=== PATIENT | female | born 1995 | race Caucasian/White ===

== ENCOUNTER 2017-05-26 13:23 | Emergency (ER) | payer MEDICAID ==
[~2017-05-26] VITALS: Ht 154.9 cm; Wt 106.8 kg
[2017-05-26 14:57] LABS: BASOPHILS % (AUTO) 0.7 % (0.0-2.0); EOSINOPHILS % (AUTO) 0.7 % (1.0-6.0); HEMATOCRIT 34.6 % (36-46); HEMOGLOBIN 10.9 g/dL (12.0-16.0); LYMPHOCYTES # (AUTO) 1.7 K/uL (1.0-4.8); LYMPHOCYTES % (AUTO) 13.8 % (22.0-44.0); MEAN CORPUSCULAR HEMOGLOBIN 22.6 pg (26.0-34.0); MEAN CORPUSCULAR HGB CONC 31.4 G/dL (31.0-37.0); MEAN CORPUSCULAR VOLUME 72 fL (80-100); MONOCYTES # (AUTO) 0.7 K/uL (0.1-1.0); MONOCYTES % (AUTO) 5.4 % (2.0-9.0); NEUTROPHILS % (AUTO) 79.4 % (40.0-70.0); PLATELET COUNT (AUTO) 336 K/uL (150-450); RED BLOOD CELL COUNT(AUTO) 4.82 MIL/uL (4.00-5.20); RED CELL DISTRIBUTION WIDTH 18.1 % (11.5-14.5)
[2017-05-26 15:09] LABS: ANION GAP 8 mmol/L (8-16); CALCIUM, TOTAL 8.9 mg/dL (8.8-10.5); CARBON DIOXIDE 28 mmol/L (22-29); CHLORIDE 101 mmol/L (98-107); CREATININE 0.87 mg/dL (0.60-1.30); GLOMERULAR FILTR. RATE CALC > 60 mL/min (>60); GLUCOSE,RANDOM 106 mg/dL (70-110); SODIUM SERUM 137 mmol/L (136-145); UREA NITROGEN, BLOOD 16 mg/dL (7-18)
[2017-05-26 15:15] LABS: ALANINE AMINOTRANSFERASE 32 U/L (12-78); ALBUMIN 3.6 g/dL (3.4-5.0); ALKALINE PHOSPHATASE 127 U/L (46-116); ASPARTATE AMINOTRANSFERASE 25 U/L (15-37); BILIRUBIN,TOTAL 0.5 mg/dL (0.1-1.0); TOTAL PROTEIN, SERUM 7.9 g/dL (6.4-8.2)
[2017-05-26 15:26] LABS: PLATELET MORPHOLOGY COMMENT GIANT PLTS PRESENT
[2017-05-26] MEDS ORDERED: MORPHINE SULFATE 4 MG/ML SYRINGE IVP ONE (16:30)
[2017-05-26] MEDS ORDERED: ONDANSETRON HCL 4 MG/2 ML VIAL IVP ONE (16:30)
[2017-05-26] MEDS ORDERED: LORazepam 2 MG/ML VIAL IVP ONE (16:45)
[2017-05-26 19:03] VITALS: BP 158/87
== END 2017-05-26 19:22 | disposition home or self-care (01) ==
LOC: EMS 13:23
DX: R07.89 Other chest pain (principal); F41.9 Anxiety disorder, unspecified
CPT/HCPCS: 36415; 71046; 71275; 80053; 84484; 84703; 85025; 85379; 93005; 96374; 96375; 99285; J2060; J2270; J2405

== ENCOUNTER 2017-09-21 09:22 | Emergency (ER) | payer MEDICAID ==
[~2017-09-21] VITALS: Ht 157.5 cm; Wt 111.6 kg
[2017-09-21] MEDS ORDERED: ENOXAPARIN SODIUM 100 MG/ML PF SYRINGE SQ ONE (11:45)
[2017-09-21] MEDS ORDERED: WARFARIN SODIUM 5 MG TABLET PO ONE (11:45)
[2017-09-21 12:23] VITALS: BP 134/68
== END 2017-09-21 12:24 | disposition home or self-care (01) ==
LOC: EMS 09:23
DX: I82.401 Acute embolism and thrombosis of unspecified deep veins of right lower extremity (principal); I10 Essential (primary) hypertension; F17.210 Nicotine dependence, cigarettes, uncomplicated
CPT/HCPCS: 93971; 96372; 99284; J1650

== ENCOUNTER 2017-09-22 10:27 | Emergency (ER) | payer MEDICAID ==
[~2017-09-22] VITALS: Ht 152.4 cm; Wt 111.6 kg
[2017-09-22] MEDS ORDERED: WARFARIN SODIUM 7.5 MG TABLET PO ONE (12:00)
[2017-09-22] MEDS ORDERED: ENOXAPARIN SODIUM 60 MG/0.6 ML PF SYRINGE SQ ONE ×3 (12:00→12:45)
[2017-09-22] MEDS ORDERED: ENOXAPARIN SODIUM 100 MG/ML PF SYRINGE SQ ONE (13:15)
[2017-09-22] MEDS ORDERED: ENOXAPARIN SODIUM 80 MG/0.8 ML PF SYRINGE SQ ONE (13:15)
[2017-09-22 13:33] VITALS: BP 132/68
== END 2017-09-22 13:37 | disposition home or self-care (01) ==
LOC: EMS 10:28
DX: I82.4Z1 Acute embolism and thrombosis of unspecified deep veins of right distal lower extremity (principal); I10 Essential (primary) hypertension; F17.210 Nicotine dependence, cigarettes, uncomplicated
CPT/HCPCS: 96372; 99284; 99406; J1650 ×2

== ENCOUNTER 2017-09-23 18:21 | Emergency (ER) | payer MEDICAID ==
[~2017-09-23] VITALS: Ht 157.5 cm; Wt 111.4 kg
[2017-09-23 20:10] LABS: BASOPHILS % (AUTO) 0.9 % (0.0-2.0); EOSINOPHILS % (AUTO) 1.4 % (1.0-6.0); HEMATOCRIT 33.2 % (36-46); HEMOGLOBIN 10.7 g/dL (12.0-16.0); LYMPHOCYTES # (AUTO) 2.1 K/uL (1.0-4.8); LYMPHOCYTES % (AUTO) 22.8 % (22.0-44.0); MEAN CORPUSCULAR HEMOGLOBIN 23.3 pg (26.0-34.0); MEAN CORPUSCULAR HGB CONC 32.4 G/dL (31.0-37.0); MEAN CORPUSCULAR VOLUME 72 fL (80-100); MONOCYTES # (AUTO) 0.6 K/uL (0.1-1.0); MONOCYTES % (AUTO) 7.1 % (2.0-9.0); NEUTROPHILS # (AUTO) 6.2 K/uL (1.8-7.7); NEUTROPHILS % (AUTO) 67.8 % (40.0-70.0); PLATELET COUNT (AUTO) 226 K/uL (150-450); RED BLOOD CELL COUNT(AUTO) 4.62 MIL/uL (4.00-5.20); RED CELL DISTRIBUTION WIDTH 16.3 % (11.5-14.5)
[2017-09-23 20:26] LABS: INR 2.2 (0.9-1.1); PROTHROMBIN TIME 22.8 SEC (9.4-11.6)
[2017-09-23 20:37] LABS: PLATELET MORPHOLOGY COMMENT NORMAL
[2017-09-23] MEDS ORDERED: ENOXAPARIN SODIUM 60 MG/0.6 ML PF SYRINGE SQ ONE (21:45)
[2017-09-23] MEDS ORDERED: WARFARIN SODIUM 5 MG TABLET PO ONE (21:45)
[2017-09-23 22:25] VITALS: BP 138/86
== END 2017-09-23 22:28 | disposition home or self-care (01) ==
LOC: EMS 18:22
DX: I82.409 Acute embolism and thrombosis of unspecified deep veins of unspecified lower extremity (principal); I10 Essential (primary) hypertension; F17.210 Nicotine dependence, cigarettes, uncomplicated
CPT/HCPCS: 36415; 85025; 85610; 85730; 96372; 99284; J1650

== ENCOUNTER 2017-10-06 19:00 | Emergency (ER) | payer MEDICAID ==
[~2017-10-06] VITALS: Ht 157.5 cm; Wt 104.5 kg
[2017-10-06 19:33] LABS: HEMOGLOBIN 10.4 g/dL (12.0-16.0); MEAN CORPUSCULAR HEMOGLOBIN 23.1 pg (26.0-34.0); MEAN CORPUSCULAR HGB CONC 31.5 G/dL (31.0-37.0); MEAN CORPUSCULAR VOLUME 73 fL (80-100); PLATELET COUNT (AUTO) 224 K/uL (150-450); RED BLOOD CELL COUNT(AUTO) 4.52 MIL/uL (4.00-5.20); RED CELL DISTRIBUTION WIDTH 17.1 % (11.5-14.5)
[2017-10-06 19:38] LABS: ANION GAP 9 mmol/L (8-16); CALCIUM, TOTAL 8.4 mg/dL (8.8-10.5); CARBON DIOXIDE 25 mmol/L (22-29); CHLORIDE 103 mmol/L (98-107); CREATININE 1.04 mg/dL (0.60-1.30); GLOMERULAR FILTR. RATE CALC > 60 mL/min (>60); GLUCOSE,RANDOM 102 mg/dL (70-110); SODIUM SERUM 137 mmol/L (136-145); UREA NITROGEN, BLOOD 19 mg/dL (7-18)
[2017-10-06 19:43] LABS: INR 1.2 (0.9-1.1); PROTHROMBIN TIME 12.4 SEC (9.4-11.6)
[2017-10-06 19:44] LABS: ALANINE AMINOTRANSFERASE 25 U/L (12-78); ALBUMIN 3.2 g/dL (3.4-5.0); ALKALINE PHOSPHATASE 131 U/L (46-116); ASPARTATE AMINOTRANSFERASE 19 U/L (15-37); BILIRUBIN,TOTAL 0.4 mg/dL (0.1-1.0); TOTAL PROTEIN, SERUM 7.5 g/dL (6.4-8.2)
[2017-10-06 19:50] LABS: PLATELET MORPHOLOGY COMMENT GIANT PLTS PRESENT
[2017-10-06 19:51] LABS: BAND NEUTROPHILS % (MANUAL) 17 % (0-5); EOSINOPHILS % (MANUAL) 3 % (1-6); LYMPHOCYTES % (MANUAL) 15 % (22-44); MONOCYTES % (MANUAL) 7 % (2-9); SEGMENTED NEUTROPHILS % 58 % (40-70)
[2017-10-06] MEDS ORDERED: RIVAROXABAN 15 MG TABLET PO ONE (20:45)
[2017-10-06] MEDS ORDERED: ENOXAPARIN SODIUM 60 MG/0.6 ML PF SYRINGE SQ SCH (20:45)
[2017-10-06 22:02] VITALS: BP 121/71
== END 2017-10-06 22:03 | disposition home or self-care (01) ==
LOC: EMS 19:01
DX: I82.401 Acute embolism and thrombosis of unspecified deep veins of right lower extremity (principal); I10 Essential (primary) hypertension; F17.210 Nicotine dependence, cigarettes, uncomplicated
CPT/HCPCS: 36415; 80053; 85025; 85610; 85730; 93971; 96372; 99285; J1650

== ENCOUNTER 2017-11-18 07:35 | Emergency (ER) | payer MEDICAID ==
[~2017-11-18] VITALS: Ht 157.5 cm; Wt 106.8 kg
[2017-11-18] MEDS ORDERED: IBUPROFEN 800 MG TABLET PO ONE (08:00)
[2017-11-18] MEDS ORDERED: DiphenhydrAMINE HCL 25 MG CAPSULE PO ONE (08:00)
[2017-11-18] MEDS ORDERED: METOCLOPRAMIDE HCL 10 MG TABLET PO ONE (08:00)
[2017-11-18] MEDS ORDERED: METOCLOPRAMIDE HCL 5 MG TABLET PO ONE (08:15)
[2017-11-18 10:51] VITALS: BP 136/81
== END 2017-11-18 12:07 | disposition home or self-care (01) ==
LOC: EMS 07:38
DX: G93.5 Compression of brain (principal); I10 Essential (primary) hypertension; Z86.718 Personal history of other venous thrombosis and embolism; F17.210 Nicotine dependence, cigarettes, uncomplicated
CPT/HCPCS: 70450; 99284

== ENCOUNTER 2018-03-12 07:44 | Inpatient (IN) | payer MEDICAID ==
[~2018-03-12] VITALS: Ht 160 cm; Wt 108.0 kg
[2018-03-12] MEDS ORDERED: ACET-2247 PO (07:50)
[2018-03-12] MEDS ORDERED: FERR-89 PO (07:50)
[2018-03-12] MEDS ORDERED: LISI-661 PO (07:50)
[2018-03-12] MEDS ORDERED: VITAD1000 PO (07:50)
[2018-03-12] MEDS ORDERED: ENOXAPARIN SODIUM 60 MG/0.6 ML PF SYRINGE SQ ONE (10:30)
[2018-03-12 10:58] LABS: BASOPHILS % (AUTO) 0.9 % (0.0-2.0); EOSINOPHILS % (AUTO) 1.3 % (1.0-6.0); HEMATOCRIT 34.7 % (36-46); HEMOGLOBIN 11.2 g/dL (12.0-16.0); LYMPHOCYTES # (AUTO) 1.6 K/uL (1.0-4.8); LYMPHOCYTES % (AUTO) 26.8 % (22.0-44.0); MEAN CORPUSCULAR HEMOGLOBIN 24.6 pg (26.0-34.0); MEAN CORPUSCULAR HGB CONC 32.3 G/dL (31.0-37.0); MEAN CORPUSCULAR VOLUME 76 fL (80-100); MONOCYTES # (AUTO) 0.3 K/uL (0.1-1.0); MONOCYTES % (AUTO) 4.6 % (2.0-9.0); NEUTROPHILS # (AUTO) 4.1 K/uL (1.8-7.7); NEUTROPHILS % (AUTO) 66.4 % (40.0-70.0); PLATELET COUNT (AUTO) 180 K/uL (150-450); RED BLOOD CELL COUNT(AUTO) 4.54 MIL/uL (4.00-5.20); RED CELL DISTRIBUTION WIDTH 18.6 % (11.5-14.5)
[2018-03-12 11:07] LABS: ANION GAP 8 mmol/L (8-16); CALCIUM, TOTAL 8.6 mg/dL (8.8-10.5); CARBON DIOXIDE 27 mmol/L (22-29); CHLORIDE 105 mmol/L (98-107); CREATININE 0.85 mg/dL (0.60-1.30); GLOMERULAR FILTR. RATE CALC > 60 mL/min (>60); GLUCOSE,RANDOM 108 mg/dL (70-110); SODIUM SERUM 140 mmol/L (136-145); UREA NITROGEN, BLOOD 18 mg/dL (7-18)
[2018-03-12 11:13] LABS: ALANINE AMINOTRANSFERASE 31 U/L (12-78); ALBUMIN 3.3 g/dL (3.4-5.0); ALKALINE PHOSPHATASE 124 U/L (46-116); ASPARTATE AMINOTRANSFERASE 25 U/L (15-37); BILIRUBIN,TOTAL 0.4 mg/dL (0.1-1.0); TOTAL PROTEIN, SERUM 7.8 g/dL (6.4-8.2)
[2018-03-12 11:16] LABS: INR 1.3 (0.9-1.1); PROTHROMBIN TIME 13.5 SEC (9.4-11.6)
[2018-03-12] MEDS ORDERED: HYDROCODONE/ACETAMINOPHEN 5-325 MG TABLET PO PRN (11:30)
[2018-03-12] MEDS ORDERED: MORPHINE SULFATE 4 MG/ML SYRINGE IVP PRN (11:30)
[2018-03-12] MEDS ORDERED: HEPARIN SODIUM,PORCINE 5,000 UNITS/ML VIAL IVP PRN ×2 (11:30)
[2018-03-12] MEDS ORDERED: MAGNESIUM HYDROXIDE SUSPENSION 30 ML UDCUP PO PRN (11:30)
[2018-03-12] MEDS ORDERED: HEPARIN SODIUM,PORCINE 5,000 UNITS/ML VIAL IVP ONE (11:30)
[2018-03-12] MEDS ORDERED: ACETAMINOPHEN 325 MG TABLET PO PRN (11:30)
[2018-03-12] MEDS ORDERED: ONDANSETRON HCL 4 MG/2 ML VIAL IVP PRN (11:30)
[2018-03-12] MEDS ORDERED: BISACODYL 10 MG RECTAL RECTAL SUPPOSITORY PR PRN (11:30)
[2018-03-12] MEDS ORDERED: ZOLPIDEM TARTRATE 5 MG TABLET PO PRN (11:30)
[2018-03-12 11:40] VITALS: BP 138/103
[2018-03-12] MEDS: HEPARIN SODIUM 25000 UNITS/D5W 250 ML IV PRN (12:40)
[2018-03-12 12:55] VITALS: BP 118/63
[2018-03-12 13:22] LABS: BASOPHILS % (AUTO) 0.7 % (0.0-2.0); HEMATOCRIT 32.8 % (36-46); HEMOGLOBIN 10.4 g/dL (12.0-16.0); LYMPHOCYTES # (AUTO) 1.6 K/uL (1.0-4.8); LYMPHOCYTES % (AUTO) 22.9 % (22.0-44.0); MEAN CORPUSCULAR HEMOGLOBIN 24.5 pg (26.0-34.0); MEAN CORPUSCULAR HGB CONC 31.8 G/dL (31.0-37.0); MEAN CORPUSCULAR VOLUME 77 fL (80-100); MONOCYTES # (AUTO) 0.4 K/uL (0.1-1.0); MONOCYTES % (AUTO) 5.3 % (2.0-9.0); NEUTROPHILS % (AUTO) 70.1 % (40.0-70.0); PLATELET COUNT (AUTO) 168 K/uL (150-450); RED BLOOD CELL COUNT(AUTO) 4.26 MIL/uL (4.00-5.20); RED CELL DISTRIBUTION WIDTH 18.3 % (11.5-14.5)
[2018-03-12 13:43] LABS: INR 1.3 (0.9-1.1); PROTHROMBIN TIME 13.6 SEC (9.4-11.6)
[2018-03-12 15:50] VITALS: BP 131/87
[2018-03-12] MEDS: FERROUS SULFATE 325 MG EC TABLET PO SCH (17:30)
[2018-03-12 19:49] VITALS: BP 135/63
[2018-03-12] MEDS: DOCUSATE SODIUM 100 MG CAPSULE PO SCH (20:02)
[2018-03-12 23:32] VITALS: BP 126/69
[2018-03-13] MEDS: HEPARIN SODIUM 25000 UNITS/D5W 250 ML IV PRN (00:36)
[2018-03-13 05:01] VITALS: BP 129/66
[2018-03-13 06:08] LABS: BASOPHILS % (AUTO) 0.8 % (0.0-2.0); EOSINOPHILS % (AUTO) 1.7 % (1.0-6.0); HEMATOCRIT 33.2 % (36-46); HEMOGLOBIN 10.6 g/dL (12.0-16.0); LYMPHOCYTES # (AUTO) 2.1 K/uL (1.0-4.8); LYMPHOCYTES % (AUTO) 33.6 % (22.0-44.0); MEAN CORPUSCULAR HEMOGLOBIN 24.7 pg (26.0-34.0); MEAN CORPUSCULAR HGB CONC 31.9 G/dL (31.0-37.0); MEAN CORPUSCULAR VOLUME 77 fL (80-100); MONOCYTES # (AUTO) 0.4 K/uL (0.1-1.0); MONOCYTES % (AUTO) 5.7 % (2.0-9.0); NEUTROPHILS # (AUTO) 3.6 K/uL (1.8-7.7); NEUTROPHILS % (AUTO) 58.2 % (40.0-70.0); PLATELET COUNT (AUTO) 162 K/uL (150-450); RED BLOOD CELL COUNT(AUTO) 4.29 MIL/uL (4.00-5.20); RED CELL DISTRIBUTION WIDTH 18.2 % (11.5-14.5)
[2018-03-13 08:15] VITALS: BP 130/69
[2018-03-13] MEDS: DOCUSATE SODIUM 100 MG CAPSULE PO SCH ×2 (08:16→20:18)
[2018-03-13] MEDS: LISINOPRIL 10 MG TABLET PO SCH (08:16)
[2018-03-13] MEDS: CHOLECALCIFEROL (VIT D3) 1,000 UNITS TABLET PO SCH (08:16)
[2018-03-13] MEDS: PANTOPRAZOLE SODIUM 40 MG DR TABLET PO SCH (08:16)
[2018-03-13] MEDS: FERROUS SULFATE 325 MG EC TABLET PO SCH ×2 (08:16→17:10)
[2018-03-13 11:15] VITALS: BP 112/64
[2018-03-13] MEDS ORDERED: *CLINICAL-WARFARIN SODIUM DOSING CLINICAL ONE (14:30)
[2018-03-13 15:24] VITALS: BP 123/68
[2018-03-13] MEDS ORDERED: WARFARIN SODIUM 5 MG TABLET PO ONE (17:00)
[2018-03-13 19:36] VITALS: BP 109/62
[2018-03-13 23:31] VITALS: BP 118/62
[2018-03-14 04:38] VITALS: BP 117/71
[2018-03-14 05:35] LABS: INR 1.2 (0.9-1.1); PROTHROMBIN TIME 12.6 SEC (9.4-11.6)
[2018-03-14 08:19] VITALS: BP 132/61
[2018-03-14] MEDS: PANTOPRAZOLE SODIUM 40 MG DR TABLET PO SCH (09:00)
[2018-03-14] MEDS: CHOLECALCIFEROL (VIT D3) 1,000 UNITS TABLET PO SCH (09:00)
[2018-03-14] MEDS: FERROUS SULFATE 325 MG EC TABLET PO SCH ×2 (09:00→17:30)
[2018-03-14] MEDS: LISINOPRIL 10 MG TABLET PO SCH (09:00)
[2018-03-14] MEDS: DOCUSATE SODIUM 100 MG CAPSULE PO SCH ×2 (09:01→20:01)
[2018-03-14] MEDS ORDERED: *CLINICAL-RX DOSING [ENTER DRUG IN COMMENTS] CLINICAL ONE (10:45)
[2018-03-14] MEDS ORDERED: ENOXAPARIN SODIUM 100 MG/ML PF SYRINGE SQ ONE (11:00)
[2018-03-14 12:05] VITALS: BP 131/73
[2018-03-14 16:15] VITALS: BP 133/79
[2018-03-14] MEDS ORDERED: WARFARIN SODIUM 7.5 MG TABLET PO ONE (17:00)
[2018-03-14] MEDS: ENOXAPARIN SODIUM 100 MG/ML PF SYRINGE SQ SCH (19:57)
[2018-03-14 20:10] VITALS: BP 113/63
[2018-03-14 23:24] VITALS: BP 128/62
[2018-03-15 05:28] VITALS: BP 134/69
[2018-03-15 06:14] LABS: INR 1.3 (0.9-1.1); PROTHROMBIN TIME 13.8 SEC (9.4-11.6)
[2018-03-15 06:33] LABS: ANION GAP 7 mmol/L (8-16); CALCIUM, TOTAL 8.1 mg/dL (8.8-10.5); CARBON DIOXIDE 27 mmol/L (22-29); CHLORIDE 106 mmol/L (98-107); CREATININE 0.84 mg/dL (0.60-1.30); GLOMERULAR FILTR. RATE CALC > 60 mL/min (>60); GLUCOSE,RANDOM 96 mg/dL (70-110); POTASSIUM 4.2 mmol/L (3.5-5.1); SODIUM SERUM 140 mmol/L (136-145); UREA NITROGEN, BLOOD 21 mg/dL (7-18)
[2018-03-15 07:25] VITALS: BP 133/77
[2018-03-15] MEDS: LISINOPRIL 10 MG TABLET PO SCH (09:35)
[2018-03-15] MEDS: FERROUS SULFATE 325 MG EC TABLET PO SCH ×2 (09:35→17:03)
[2018-03-15] MEDS: DOCUSATE SODIUM 100 MG CAPSULE PO SCH (09:35)
[2018-03-15] MEDS: CHOLECALCIFEROL (VIT D3) 1,000 UNITS TABLET PO SCH (09:35)
[2018-03-15] MEDS: PANTOPRAZOLE SODIUM 40 MG DR TABLET PO SCH (09:36)
[2018-03-15] MEDS: ENOXAPARIN SODIUM 100 MG/ML PF SYRINGE SQ SCH (09:45)
[2018-03-15 11:28] VITALS: BP 120/59
[2018-03-15 15:28] VITALS: BP 110/66
[2018-03-15] MEDS ORDERED: WARFARIN SODIUM 5 MG TABLET PO ONE (17:00)
[2018-03-15] MEDS ORDERED: ENOX30DI5 SQ (18:07)
[2018-03-15] MEDS ORDERED: WARF5 PO (18:07)
== END 2018-03-15 18:33 | disposition home or self-care (01) | DRG 197 ==
LOC: EMS 07:44 → 4E 11:22 → 5N 03-15 05:49
PROVIDERS: ADMIT Internal Medicine; ATTEND Internal Medicine
DX: I82.432 Acute embolism and thrombosis of left popliteal vein (principal); Z68.41 Body mass index [BMI] 40.0-44.9, adult; D64.9 Anemia, unspecified; I10 Essential (primary) hypertension; E55.9 Vitamin D deficiency, unspecified; E66.9 Obesity, unspecified; Z87.440 Personal history of urinary (tract) infections; Z87.891 Personal history of nicotine dependence; Z91.19 Patient's noncompliance with other medical treatment and regimen
CPT/HCPCS: 93971; 96374; J1644; J1650

== ENCOUNTER 2022-08-17 10:59 | Emergency (ER) | payer MEDICAID ==
[~2022-08-17] VITALS: Ht 157.5 cm; Wt 100.0 kg
[~2022-08-17 10:59] MED LIST: ACET-2247 PO; CHOL100018 PO; ENOX30SY19 SQ; FERR325T27 PO; LISI-893 PO; WARF5TAB9 PO
[2022-08-17] MEDS ORDERED: FURO20TA4 PO (11:12)
[2022-08-17] MEDS ORDERED: SERT-162 PO (11:12)
[2022-08-17] MEDS ORDERED: AMLO10TA55 PO (11:12)
[2022-08-17] MEDS ORDERED: HYDR200T76 PO (11:12)
[2022-08-17] MEDS ORDERED: PRED5TAB2 PO (11:12)
[2022-08-17] MEDS ORDERED: ATOR10TA69 PO (11:12)
[2022-08-17] MEDS ORDERED: APIX5TAB PO (11:12)
[2022-08-17] MEDS ORDERED: FOLI-130 PO (11:12)
[2022-08-17 11:15] VITALS: BP 110/76; PULSE 112; RESP 18; TEMP 98.6
[2022-08-17] MEDS ORDERED: HYDROGEN PEROXIDE 118 ML SOLUTION ONE (12:54)
== END 2022-08-17 14:45 | disposition home or self-care (01) ==
LOC: EMS 11:13
DX: H61.22 Impacted cerumen, left ear (principal); I10 Essential (primary) hypertension; Z87.440 Personal history of urinary (tract) infections
CPT/HCPCS: 69209; 99282; Z7502; Z7610

== ENCOUNTER 2023-03-04 19:07 | Emergency (ER) | payer MEDICAID ==
[~2023-03-04] VITALS: Ht 157.5 cm; Wt 109.1 kg
[~2023-03-04 19:07] MED LIST changes: -ACET-2247 PO; +AMLO10TA55 PO; +APIX5TAB PO; +ATOR10TA69 PO; -CHOL100018 PO; -ENOX30SY19 SQ; -FERR325T27 PO; +FOLI-130 PO; +FURO20TA4 PO; +HYDR200T76 PO; -LISI-893 PO; +PRED5TAB2 PO; +SERT-162 PO; -WARF5TAB9 PO
[2023-03-04 19:19] VITALS: BP 146/95; PULSE 72; RESP 16; TEMP 98
[2023-03-04] MEDS ORDERED: BACITRACIN 0.9 GM PACKET OINTMENT TP ONE (19:30)
== END 2023-03-04 19:38 | disposition home or self-care (01) ==
LOC: EMS 19:13
DX: S81.012D Laceration without foreign body, left knee, subsequent encounter (principal); I10 Essential (primary) hypertension; Z98.890 Other specified postprocedural states; Z48.02 Encounter for removal of sutures; W45.8XXD Other foreign body or object entering through skin, subsequent encounter
CPT/HCPCS: 99282; Z7502; Z7610